=== PATIENT | male | born 1970 | race Caucasian/White ===

== ENCOUNTER 2017-02-25 22:55 | Emergency (ER) | payer OTHER ==
[~2017-02-25] VITALS: Ht 177.8 cm; Wt 92.5 kg
[~2017-02-25 22:55] MED LIST: CLIN300C93 PO
[2017-02-25 22:56] VITALS: BP 122/79
== END 2017-02-25 23:48 | disposition home or self-care (01) ==
LOC: ED 23:39
DX: K02.9 Dental caries, unspecified (principal)
CPT/HCPCS: 99283

== ENCOUNTER 2018-09-23 01:55 | Emergency (ER) | payer OTHER ==
[~2018-09-23] VITALS: Ht 177.8 cm; Wt 94.4 kg
[~2018-09-23 01:55] MED LIST changes: +CLIN300C8 PO; -CLIN300C93 PO
--- NOTE | 2018-09-23 02:08 | NUR ---
PTS IGNACIO [phone]
--- NOTE | 2018-09-23 02:25 | NUR ---
PT ASSISTED WITH URINAL. PT VERY UNSTEADY ON HIS FEET. APPROX 700ML URINE OUT. PT NOW BACK IN BED. PT ON BP AND PULSE OX MONITORING. PT IN [facility] ROOM.
--- NOTE | 2018-09-23 02:54 | NUR ---
BREAK RN: PT CALLED TO GET AN UPDATE ON PT. PER PT, OK TO SPEAK WITH
--- NOTE | 2018-09-23 03:41 | NUR ---
PTS SPOUSE NOW AT BEDSIDE. POC DISCUSSED. SPOUSE DENIES CURRENT NEEDS. BED RAILS UPX2. EDUCATED PRESS WASHER LIGHT USE.
--- NOTE | 2018-09-23 04:01 | NUR ---
PT AWAKE, AOX4, AND ABLE TO DRESS SELF INDEPENDENTLY. STATES SHE FEELS COMFORTABLE TAKING PT HOME. PT AGREES WITH READY TO GO HOME. INFORMED.
[2018-09-23 04:03] VITALS: BP 112/74
== END 2018-09-23 04:04 | disposition home or self-care (01) ==
LOC: ED 04:00
DX: F10.120 Alcohol abuse with intoxication, uncomplicated (principal); F17.200 Nicotine dependence, unspecified, uncomplicated
CPT/HCPCS: 99283